=== PATIENT | female | born 1995 | race American Indian/Alaskan Native ===

== ENCOUNTER 2017-06-15 07:15 | Inpatient (IN) | payer OTHER ==
[~2017-06-15] VITALS: Ht 160 cm; Wt 72.6 kg
[2017-06-15] MEDS ORDERED: PRENATAL 19 TA1 EACH PO (09:06)
[2017-06-17] MEDS ORDERED: ALDOMET500 MG PO (11:00)
== END 2017-06-17 13:55 | DRG 774 ==
LOC: LDR 07:15 → OB/GYN 21:25
PROC: 10E0XZZ Delivery of Products of Conception, External Approach (ICD-10-PCS; principal; 2017-06-15)
PROC: 4A1HXCZ Monitoring of Products of Conception, Cardiac Rate, External Approach (ICD-10-PCS; 2017-06-15)
PROC: 3E0P7VZ Introduction of Hormone into Female Reproductive, Via Natural or Artificial Opening (ICD-10-PCS; 2017-06-15)
PROC: 10907ZC Drainage of Amniotic Fluid, Therapeutic from Products of Conception, Via Natural or Artificial Opening (ICD-10-PCS; 2017-06-15)
PROC: 4A033R1 Measurement of Arterial Saturation, Peripheral, Percutaneous Approach (ICD-10-PCS; 2017-06-15)
DX: O14.13 Severe pre-eclampsia, third trimester (principal); O70.1 Second degree perineal laceration during delivery; Z37.0 Single live birth; Z3A.39 39 weeks gestation of pregnancy